=== PATIENT | male | born 1995 | race Caucasian/White ===

== ENCOUNTER 2020-03-30 10:44 | Emergency (ER) | payer OTHER, SELFPAY ==
[2020-03-30 10:46] VITALS: BP 156/87; PULSE 76; RESP 18; TEMP 36.6; O2SAT 100; BMI 29.4
--- NOTE | 2020-03-30 10:58 | ED.DCSUM_ITS ---
History of Present Illness Chief Complaint: Chest Pain Informant: Patient Onset: Month(s) Context: Gradual Onset Current Severity: Moderate Maximum Severity: Moderate Narrative: Patient present secondary left-sided chest pain. Patient states has been having pain intermittently for the past year, worse over the past couple weeks. He was seen by his doctor at one point and had blood work that was unremarkable. He never followed up to get the EKG. Patient states for the past 1 to 2 weeks has had worsened pain that is now almost constant. Pain is not necessarily worsened with deep breath or movement of his left arm. He points to the left mid sternum area and states the pain radiates down to the anterior lateral left lower ribs. He denies any recent chest trauma. He states up until a week ago he was running normally and did not have worsening of pain when running. No significant family history of cardiac disease. Past Medical History - Allergies and Home Meds Allergies/Adverse Reactions: Allergies amoxicillin [From Augmentin] Allergy (Verified 03/30/20 10:54) Rash clavulanic acid [From Augmentin] Allergy (Verified 03/30/20 10:54) Rash sulfamethoxazole [From Bactrim] Allergy (Verified 03/30/20 10:54) Rash trimethoprim [From Bactrim] Allergy (Verified 03/30/20 10:54) Rash Primary Care Physician: NOT,DEFINED [NON-STAFF] - Past Medical History: None Smoking Status: Never smoker Review of Systems General: Denies: Chills, Fever Eyes: Denies: Visual changes - bilaterally ENT: Denies: Bilateral ear pain Cardiovascular: Reports: Chest pain. Denies: Palpitations Respiratory: Denies: Dyspnea, Cough Gastrointestinal: Denies: Abdominal pain, Nausea, Vomiting, Diarrhea Genitourinary: Denies: Dysuria Musculoskeletal: Denies: Swelling, Extremity Pain Skin: Denies: Rash Neurological: Denies: Headache Hematologic: Denies: Easy bruising, Easy bleeding Allergy: Denies: Uticaria Physical Exam Vital Signs/Narrative: Vital Signs Temp Pulse Resp BP Pulse Ox 03/30/20 10:46 97.8 F 76 18 156/87 H 100 Inital Vital Signs reviewed: Yes General: Well nourished, Well developed Head: Normocephalic ENT: Moist mucous membranes Neck: Supple Cardiovascular: Regular rate, Regular rhythm Respiratory: No distress, CTA bilaterally, Chest tenderness - Chest tenderness to the left anterior chest wall. No crepitus. Abdomen: Soft, Nontender Skin: Normal color Neurological: Alert, Oriented x3 Psychological: Normal affect Diagnostic/Tx/Re-eval Chest X-Ray - ED: 2 View, Read by ED Physician, Normal, Heart, Lungs, Mediastinum Impressions Chest X-Ray 03/30/20 11:00 IMPRESSION: Normal x-ray examination of the chest. Electronically Signed: Robert Tejada MD at 12:07 EST , Service support , 03/30/20 11:00 Chest PA and Lateral [RAD] Stat Laboratory Results 03/30/20 03/30/20 03/30/20 10:30 10:30 10:30 WBC 5.7 RBC 5.37 Hgb 15.7 Hct 47.4 MCV 88.3 MCH 29.2 MCHC 33.1 RDW Std Deviation 37.2 RDW Coeff of Philip 11.5 L Plt Count 223 MPV 11.3 Immature Gran % (Auto) 0.200 Neut % (Auto) 61.5 Lymph % (Auto) 27.2 [place] % (Auto) 7.8 Eos % (Auto) 2.8 Baso % (Auto) 0.5 Absolute Neuts (auto) 3.5 Absolute Lymphs (auto) 1.56 Nucleated RBC % 0 D-Dimer Quant (PE/DVT) <= 0.27 Sodium 137 Potassium 3.7 Chloride 103 Carbon Dioxide 28.0 Anion Gap 6 BUN 12 Creatinine 1.06 Estim Creat Clear Calc 123.86 Est GFR (MDRD) Af Amer 109 Est GFR (MDRD) Non-Af 90 BUN/Creatinine Ratio 11.3 Glucose 87 Calcium 9.2 Troponin I < 0.015 - EKG Initial EKG Interpretation: Sinus Rhythm - Sinus at 62 with no acute ischemia. - Medical Decision Making Patient was given Toradol here for chest wall pain. EKG is unremarkable. Two- view chest x-ray per my interpretation is normal. Radiologist interpretation is reviewed. Blood work is unremarkable including CBC, chemistry studies, troponin, and D-dimer. Patient is reassured with this. He does raise the question as to whether this could be stress induced stating he has been through a lot in the last year including the of his mother 3 months ago. I advised him this could certainly be contributing to it. With the area of the patient's pain I do question if he has some inflammation along the junction of the cartilage and ribs. He will be trialed on a course of anti-inflammatories to see if this helps. He is not interested in talking to a counselor at this time. ED Disposition - Plan for ED Patient: Disposition: Home or Assisted Living Diagnosis: Chest wall pain Instructions: ED Chest Wall Pain, Costochondritis Prescriptions: Naproxen [Naprosyn] 500 mg PO BID PRN PRN #20 tab PRN Reason: Pain Score 4-10 Transmission Status: Pending to [facility] Referrals: Carolin Quezada MD [STAFF PHYSICIAN] - 1-2 Weeks
--- NOTE | 2020-03-30 11:00 | RAD_ITS ---
STUDY: X-RAY CHEST REASON FOR EXAM: Male, 24 years old. WORSENING CHEST PAIN OVER THE PAST MONTH TECHNIQUE: PA and lateral views of the chest. COMPARISON: None. FINDINGS: EKG electrodes are seen. The lungs are clear and expanded. Scattered calcified granulomas. There is no demonstrated pleural abnormality. Normal size heart. Normal mediastinum and gurmeet. Normal visualized pulmonary arteries. Normal visualized aortic arch and descending thoracic aorta. Normal visualized thoracic spine. Normal visualized ribs, clavicles, and shoulders. There is no demonstrated abnormality of the visualized soft tissue structures of the upper abdomen. RAD/Chest PA and Lateral IMPRESSION: Normal x-ray examination of the chest. Electronically Signed: Robert Tejada MD at 12:07 EST , Service support ,
[2020-03-30 11:08] LABS: Absolute Lymphocyte Count 1.56 X10^3/uL (0.83-4.51); Absolute Neutrophil Count 3.5 X10^3/uL (2.0-7.7); Basophil# 0.03 X10^3/uL; Basophil% 0.5 % (0-1); Eosinophil# 0.16 X10^3/uL; Eosinophils% 2.8 % (0-5); Hematocrit 47.4 % (40-54); Hemoglobin 15.7 g/dL (13.0-16.5); Lymphocyte # 1.56 X10^3/ul (4.0); Lymphocyte % 27.2 % (19-41); Mean Corp Hgb Conc 33.1 g/dL (32-36); Mean Corpuscular Hgb 29.2 pg (27.0-32.0); Mean Corpuscular Volume 88.3 fL (80-94); Mean Platelet Vol. 11.3 fl (6.2-12.0); Monocyte# 0.45 X10^3/uL; Monocyte% 7.8 % (0-10); NRBC Flagged by Analyzer 0 % (0-5); Neutrophil # 3.53 X10^3/uL (2.7-7.7); Neutrophil % 61.5 % (47-70); Platelet Count 223 K/mm3 (150-450); RBC Distribution Width CV 11.5 % (11.6-14.6); RBC Distribution Width SD 37.2 fl (35.1-43.9); Red Blood Count 5.37 M/mm3 (4.6-6.2); White Blood Count 5.7 K/mm3 (4.4-11.0)
[2020-03-30 11:19] LABS: D-Dimer Quantitative (DVT/PE) <= 0.27 FEU/ug/m (0.27-0.49)
[2020-03-30 11:24] LABS: Anion Gap 6 (5-15); BUN 12 mg/dL (7-18); BUN/Creat Ratio 11.3 RATIO (10-20); Calcium,Total 9.2 mg/dL (8.5-10.1); Chloride 103 mmol/L (98-107); Creatinine, Serum 1.06 mg/dL (0.70-1.30); EST Glomerular Filtration Rate 90 mL/min (>60); Est Glom Filt Rate - Afr Amer 109 mL/min (>60); Estimated Creatinine Clearance 123.86 ml/min; Glucose 87 mg/dL (74-106); Potassium 3.7 mmol/L (3.5-5.1); Sodium Level 137 mmol/L (136-145)
[2020-03-30] MEDS: Ketorolac 30 MG/ML Syringe IV (11:41)
--- NOTE | 2020-03-30 11:52 | EKG12_ITS ---
Test Reason : CP Blood Pressure : / mmHG Vent. Rate : 062 BPM Atrial Rate : 062 BPM P-R Int : 138 ms QRS Dur : 096 ms QT Int : 418 ms P-R-T Axes : 038 042 035 degrees QTc Int : 424 ms Normal sinus rhythm Normal ECG Confirmed by JESSE POWELL MD ([id number]), editor producer JONATHAN ALVARADO ([id number]) on 04/04/2020 10:37:41 AM Referred By: JESSE
--- NOTE | 2020-03-30 11:52 | NURSING ---
NO OLD EKGS
[2020-03-30 13:37] VITALS: BP 133/77; PULSE 49; RESP 18; O2SAT 99
== END 2020-03-30 13:38 | disposition home or self-care (01) ==
PROVIDERS: Emergency Provider Emergency Medicine
DX: R07.89 Other chest pain (principal); Z88.0 Allergy status to penicillin; Z88.1 Allergy status to other antibiotic agents; Z88.2 Allergy status to sulfonamides
CPT/HCPCS: 71046; 80048; 84484; 85025; 85379; 93005; 96374; 99284; A4216

== ENCOUNTER → 2023-10-03 | Outpatient (CLI) | payer BC, SELFPAY ==
[2023-10-03 15:09] LABS: Absolute Lymphocyte Count 1.57 X10^3/uL (0.83-4.51); Absolute Neutrophil Count 3.1 X10^3/uL (2.0-7.7); Basophil# 0.04 X10^3/uL; Basophil% 0.8 % (0-1); Eosinophil# 0.14 X10^3/uL; Eosinophils% 2.6 % (0-5); Hematocrit 47.1 % (40-54); Hemoglobin 15.2 g/dL (13.0-16.5); Lymphocyte # 1.57 X10^3/ul (0.83-4.51); Lymphocyte % 29.7 % (19-41); Mean Corp Hgb Conc 32.3 g/dL (32-36); Mean Corpuscular Hgb 28.7 pg (27.0-32.0); Mean Corpuscular Volume 88.9 fL (80-94); Mean Platelet Vol. 11.5 fl (6.2-12.0); Monocyte# 0.43 X10^3/uL; Monocyte% 8.1 % (0-10); NRBC Flagged by Analyzer 0 % (0-5); Neutrophil % 58.6 % (47-70); Platelet Count 222 K/mm3 (150-450); RBC Distribution Width CV 11.7 % (11.6-14.6); RBC Distribution Width SD 37.9 fl (35.1-43.9); White Blood Count 5.3 K/mm3 (4.4-11.0)
[2023-10-03 15:18] LABS: ALB/GLOB Ratio 1.3 RATIO (0.9-2.4); AST(SGOT) 18 U/L (15-37); Alanine Aminotransfer ALT/SGPT 29 U/L (16-61); Albumin, Serum 4.2 g/dL (3.2-5.0); Alkaline Phosphatase 63 U/L (45-117); Anion Gap 6 (5-15); BUN 12 mg/dL (7-18); BUN/Creat Ratio 13.2 RATIO (10-20); Calcium,Total 9.2 mg/dL (8.5-10.1); Chloride 106 mmol/L (98-107); Cholesterol 156 mg/dL (200); Creatinine, Serum 0.91 mg/dL (0.70-1.30); EST Glomerular Filtration Rate 104 mL/min (>60); Est Glom Filt Rate - Afr Amer 126 mL/min (>60); Globulin 3.2 g/dL (2.2-4.2); Glucose 91 mg/dL (74-106); High Density Lipoprotein 78 mg/dL; Potassium 4.5 mmol/L (3.5-5.1); Protein, Total 7.4 g/dL (6.4-8.2); Sodium Level 140 mmol/L (136-145); Triglycerides 40 mg/dL; Very Low Density Lipoprotein 8 mg/dL (5-40)
== END | disposition home or self-care (01) ==
LOC: MFPLAB 11:58
PROVIDERS: PCP Family Medicine; Visit Provider Family Medicine
DX: Z00.00 Encounter for general adult medical examination without abnormal findings (principal); Z13.1 Encounter for screening for diabetes mellitus; Z13.220 Encounter for screening for lipoid disorders
CPT/HCPCS: 36415; 80053; 80061; 85025

== ENCOUNTER 2023-11-29 09:12 | Day surgery (SDC) | payer BC, SELFPAY ==
[2023-11-29] VITALS (9 sets, daily range): BP systolic 81–140; BP diastolic 40–79; PULSE 56–69; RESP 16; TEMP 36.4–36.7; O2SAT 96–98; BMI 27.7
--- NOTE | 2023-11-29 09:52 | PCM.HP.BLA ---
History and Physical Date of Admission: 11/29/23 Intake Vital Signs 10/17/2412:12 Height 6 ft 2 in Weight: 217 lb BMI 27.8 BP 138/79 H Blood Pressure Location Rt brachial Position Sitting Respiration 17 Pulse 53 L Pulse Source Monitor Temp 97.5 F L Temp Source Temporal Pulse Oximetry (%) 96 Oxygen Delivery Method room air Intake Visit Reasons: Colonoscopy Screening, Family Hx Chief Complaint: colonoscopy screen/family hx Is patient in pain?: No Allergies amoxicillin (From Augmentin) Allergy (Verified 10/18/23 13:15) Rashclavulanic acid (From Augmentin) Allergy (Verified 10/18/23 13:15) Rashsulfamethoxazole (From Bactrim) Allergy (Verified 10/18/23 13:15) Rashtrimethoprim (From Bactrim) Allergy (Verified 10/18/23 13:15) Rash Medications ?Medication ?Instructions ?Recorded ?Confirmed ?Type naproxen 500 mg tablet 500 mg PO BID PRN PRN Pain Score 03/30/20 10/18/23 Rx 4-10 #20 tabs PFSH Family History (Updated 10/18/23 @ 13:12 by Sol Macias) Father Colon cancer Social History (Updated 10/18/23 @ 13:12 by Sol Macias) Smoking Status: Never smoker alcohol intake: current HPI HPI HPI: Patient is a 28-year-old male here for colonoscopy. His father had colon cancer in his 30s. The patient has never had a colonoscopy in the past. He denies abdominal pain or blood in the stool. ROS General General: No weight change, appetite, fatigue, colon cancer, breast cancer or weakness HEENT HEENT: No difficulty swallowing, eye injury, eye surgery, swollen glands or hoarseness Endo Endocrine: No thyroid disease, diabetes mellitus, thyroid cancer, Hair loss, heat intolerance or cold intolerance Skin Skin: No rash or changing moles Musc Musculoskeletal: No back problems, arthritis, rheumatoid arthritis, gout or joint pain Cardio Cardiovascular: No murmur, pacemaker, heart disease, atrial fibrillation, high blood pressure, heart attack, heart stent, palpitations, shortness of breat with exertion or chest pain Psych Psychiatric: No depression, anxiety or hearing voices Resp Respiratory: No shortness of breath, No sleep apnea, No cough, No COPD, No asthma, No emphysema and No wheezing Gastro Gastrointestinal: No abdominal pain, No nausea or vomiting, No diarrhea, No constipation, No blood in stool, No acid reflux, No hemorrhoids, No ulcers, No gallbladder problem and No black,tarry stools Howard Hematologic: No blood thinners, No blood disorders, No bleeding, No anemia and No blood clots Neuro Neurologic: No system reviewed and no additional complaints, except as documented, No as per HPI, No abnormal gait, No abnormal hearing, No abnormal movements, No abnormal speech, No behavioral changes, No burning sensations, No confusion, No convulsions, No disequilibrium, No dizziness, No localized weakness, No frequent falls, No headache(s), No lack of coordination, No loss of vision, No memory loss, No numbness, No other visual disturbances, No radicular pain, No restless legs, No sensory deficit, No syncope, No tingling, No tremor(s), No weakness and No other Exam Const General: cooperative Orientation: alert and oriented x3 HENMT Head: normal to inspection Neck Neck: normal visual inspection and full ROM Chest Chest palpation & inspection: normal inspection of the chest Resp Effort & Inspection: normal respiratory effort Auscultation: clear to auscultation bilaterally Cardio Rate: regular rate Rhythm: regular rhythm GI Inspection: non-distended Palpation: soft and nontender Skin General: no rashes or lesions noted Neuro General: patient alert and patient oriented x3 Extrem General: full ROM Psych Appearance: grossly normal Mental Status: mental status grossly normal Assessment and Plan Assessment and Plan (1) Family hx of colon cancer requiring screening colonoscopy: Status: Acute Plan: I explained endoscopy in detail to the patient. I explained the risks including but not limited to stroke or heart attack with anesthesia, perforation of the GI tract, bleeding, infection. I explained that any of these could necessitate further emergency surgery. The patient understands and all questions were answered sufficiently. The patient wishes to proceed with procedure. Mark Espana MD Pager: [facility] [address] [place] [address], [address] [place] [address] Office: I have examined the patient and the H&P has been reviewed. There are no clinical changes since date of exam.
--- NOTE | 2023-11-29 10:00 | PCM.PRE.AN2 ---
ASA Classification* ASA Classification ASA Classification: 2 Assessment & Plan Anesthesia* Anesthesia Assessment Anesthesia Assessment: Discussed sedation and/or anesthesia options, risks, benefits, and alternatives with patient/parents/legal guardian/POA. Questions invited. The patient/parents/legal guardian/POA seems to understand and agrees to proceed with anesthesia plan. Reviewed the physical assessment, medical history, allergy history and patient home medications list prior to surgery/procedure/anesthetic and documented any changes. Performed airway and anesthesia risk assessments. Anesthesia Type Anesthesia Type: MAC (see written pre anesthesia record for full assessment) Anesthesia Focused Assessment* Temperature: 98.1 F Pulse Rate: 68 Blood Pressure: 140/79 Respiratory Rate: 16 Pulse Ox: 98 Airway Assessment Mouth opens: >3 cm Mallampati Score: II Focused Labs Anesthesia Preop lab: CBC WBC 5.3 K/mm3 (4.4-11.0) 10/03/23 11:59 RBC 5.30 M/mm3 (4.6-6.2) 10/03/23 11:59 Hgb 15.2 g/dL (13.0-16.5) 10/03/23 11:59 Hct 47.1 % (40-54) 10/03/23 11:59 Plt Count 222 K/mm3 (150-450) 10/03/23 11:59 CHEMISTRY Potassium 4.5 mmol/L (3.5-5.1) 10/03/23 11:59 Sodium 140 mmol/L (136-145) 10/03/23 11:59 BUN 12 mg/dL (7-18) 10/03/23 11:59 Creatinine 0.91 mg/dL (0.70-1.30) 10/03/23 11:59 Glucose 91 mg/dL (74-106) 10/03/23 11:59 COAG Pre-Assessment Diagnosis/Proposed Procedure Planned Operative Procedure(s): COLONOSCOPY Anesthesia History 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 When Was Last Pacemaker Check QUESTION #4 FULL TEXT: You/Your Family Experience fever (hyperthermia) with Anesthesia Last Oral Intake Last Oral intake: Last Oral Intake NPO since Meds taken in AM with sips of water? 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 software developer: PONV - biztalk software developer Female No 11/25/23 14:20 HX of Motion Sickness No 11/25/23 14:20 HX of N/V After Surgery No 11/25/23 14:20 Non-Smoker Yes 11/25/23 14:20 Duration of Surgery greater No 11/25/23 14:20 than 60 minutes Number of Risk Factors 1 11/25/23 14:20 PONV Score Low Risk 11/25/23 14:20 Height & Weight Height & Weight: Anesthesia: Height & Weight Height 6 ft 2 in 11/29/23 09:28 Weight: 98 kg 11/29/23 09:28 Body Mass Index (BMI) 27.7 11/29/23 09:28 Respiratory Assessment Respiratory Assessment - biztalk software developer: Respiratory Tract Infection Hx - biztalk software developer Hx Respiratory Tract Infection No 11/25/23 14:20 STOP Sleep Apnea STOP Sleep Apnea - biztalk software developer: STOP Sleep Apnea - biztalk software developer Hx Hypertension No 11/25/23 14:20 Hx Sleep Apnea No 11/25/23 14:20 CPAP BIPAP Do you snore loudly (louder No 11/25/23 14:20 than talking or can be heard Do you often feel tired/ No 11/25/23 14:20 fatigued/ sleepy during daytime? Has anyone observed you stop No 11/25/23 14:20 breathing during sleep? STOP Results Negative 11/25/23 14:20 QUESTION #5 FULL TEXT : Do you snore loudly (louder than talking or can be heard through closed doors)? 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 Specify any problems Hx of Preganancy in last 3 N/A 11/25/23 14:20 Months Nurse Filling Out Transfusion [email or web address] 11/25/23 14:20 & Questions: Date: 11/25/23 11/25/23 14:20 Time: 14:11/25/23 14:20 Patient unable to answer at this time (ie. confused, unrespo /Reproduction History /Reproductive History - biztalk software developer: /Reproductive Hx- biztalk software developer Hx Now Gestational Age (in weeks): EDC: Hx Hx Para Hx Section SAB PFSH Medical History Non-smoker Home Medications ?Medication ?Instructions ?Recorded ?Last Taken ?Type NK 11/25/23 Unknown History Allergy/AdvReac Type Severity Reaction Status Date / Time amoxicillin (From Augmentin) Allergy Rash Verified 11/29/23 09:28 clavulanic acid (From Allergy Rash Verified 11/29/23 09:28 Augmentin) sulfamethoxazole (From Allergy Rash Verified 11/29/23 09:28 Bactrim) trimethoprim (From Bactrim) Allergy Rash Verified 11/29/23 09:28 Family History Father Colon cancer Social History Smoking Status: Never smoker alcohol intake: current Review of Systems (Anesthesia) ROS Narrative System reviewed and no additional complaints, except as documented.
--- NOTE | 2023-11-29 10:26 | PCM.POST.ANE ---
Anesthesia: Postop Eval I Current Vital Signs Temperature: 97.5 F Pulse Rate: 67 Blood Pressure: 81/40 Respiratory Rate: 16 Pulse Ox: 96 Oxygen Delivery Method: Room Air Assessment Airway patent: Yes Spontaneous unlabored respirations: Yes Mental status: Asleep nausea: No Vomiting: No Anesthesia Complication: No Fluid Hydration Crystalloid volume administer (ml): 30 Total IV fluid infused: 30 Progress Note Anesthesia document: Postop Eval 1 completed: Yes
--- NOTE | 2023-11-29 10:30 | PCM.POSTANE2 ---
Anesthesia Postop Eval I Sum Postop Eval Completion status Anesthesia document: Postop Eval 1 completed: Yes Anesthesia Postop Eval I Summary Anesthesia Postop Eval I Summary: Anesthesia Postop Eval I: Assessment Summary Airway patent Yes 11/29/23 10:27 [email or web address] Spontaneous unlabored Yes 11/29/23 10:27 [email or web address] respirations Mental status Asleep 11/29/23 10:27 [email or web address] nausea No 11/29/23 10:27 [email or web address] Vomiting No 11/29/23 10:27 [email or web address] Anesthesia Postop Eval I: Fluid Summary Crystalloid volume administer 30 11/29/23 10:27 [email or web address] (ml) Colloids volume administered ( ml) Blood Product volume administered (ml) Total IV fluid infused 30 11/29/23 10:27 [email or web address] Anesthesia Postop Eval I: Summary Notes Anesthesia Complication No 11/29/23 10:27 [email or web address] Anesthesia Complication Comment: Post-operative progress note Anesthesia: Postop Eval II Evaluation Mental status: Awake Pain Level: 0 nausea: No Vomiting: No
--- NOTE | 2023-12-02 15:27 | OP.COLON_ITS ---
Patient Name: Sampson Trotter Procedure Date: 11/29/2023 9:59 AM Date of : 1995 Age: 28 Procedure: Colonoscopy Indications: Screening in patient at increased risk: Colorectal cancer in father before age 60 Providers: Mark Espana MD Referring MD: Ijeoma Lee Md Medicines: Propofol per Anesthesia Patient Profile: This is a 28 year old male. Refer to note in patient chart for documentation of history and physical. Last Colonoscopy: none. The patient's first colonoscopy is today. Complications: No immediate complications. Procedure: Pre-Anesthesia Assessment: - Prior to the procedure, a History and Physical was performed, and patient medications and allergies were reviewed. The patient's tolerance of previous anesthesia was also reviewed. The risks and benefits of the procedure and the sedation options and risks were discussed with the patient. All questions were answered, and informed consent was obtained. Prior Anticoagulants: The patient has taken no anticoagulant or antiplatelet agents. After reviewing the risks and benefits, the patient was deemed in satisfactory condition to undergo the procedure. After I obtained informed consent, the scope was passed under direct vision. Throughout the procedure, the patient's blood pressure, pulse, and oxygen saturations were monitored continuously. The pediatric colonoscope was introduced through the anus and advanced to the cecum, identified by appendiceal orifice and ileocecal valve. The colonoscopy was performed without difficulty. The patient tolerated the procedure well. The quality of the bowel preparation was good. The ileocecal valve, appendiceal orifice, and rectum were photographed. Scope In: 10:07:31 AM Scope Withdrawal Time 0 hours 6 minutes 8 seconds Scope Out: 10:18:16 AM Total Procedure Duration Time 0 hours 10 minutes 45 seconds Findings: The entire examined colon appeared normal on direct and retroflexion views. Impression: - The entire examined colon is normal on direct and retroflexion views. - No specimens collected. Recommendation: - Discharge patient to home. - Resume previous diet. - Continue present medications. - Repeat colonoscopy in 5 years for screening purposes. Procedure Code(s): --- Professional --- 73330, Colonoscopy, flexible; diagnostic, including collection of specimen(s) by brushing or washing, when performed (separate procedure) Diagnosis Code(s): --- Professional --- Z80.0, Family history of malignant neoplasm of digestive organs CPT copyright 2021 [employer]. All rights reserved. The codes documented in this report are preliminary and upon medical biller/coder review may be revised to meet current compliance requirements. Mark Espana MD 11/29/2023 10:20:40 AM This report has been signed electronically. Number of Addenda: 0 Note Initiated On: 11/29/2023 9:59 AM
--- NOTE | 2023-12-02 15:27 | OP.CCLET_ITS ---
11/29/2023 Ijeoma Lee Md Re : Colonoscopy procedure for Sampson Trotter Dear Jesus This procedure was performed on Wednesday, November 29, 2023. My impressions and recommendations are as follows: Impressions : - The entire examined colon is normal on direct and retroflexion views. - No specimens collected. Recommendations : - Discharge patient to home. - Resume previous diet. - Continue present medications. - Repeat colonoscopy in 5 years for screening purposes. My findings are described in the full procedure note, which is enclosed. If I can be of further assistance, please feel free to contact me at Doctor phone number(s): , Work: . Sincerely, Mark Espana MD 11/29/2023 10:20:40 AM This report has been signed electronically.
== END 2023-11-29 11:04 | disposition home or self-care (01) ==
LOC: EN 09:15 → AC 09:15
PROVIDERS: PCP Family Medicine; Referring Provider Family Medicine; Visit Provider Surgery
PROC: 0DJD8ZZ Inspection of Lower Intestinal Tract, Via Natural or Artificial Opening Endoscopic (ICD-10-PCS; CPT 45378; principal; 2023-11-29 10:10)
DX: Z12.11 Encounter for screening for malignant neoplasm of colon (principal); Z80.0 Family history of malignant neoplasm of digestive organs
CPT/HCPCS: 45378; A4216; J2405